=== PATIENT | male | born 1985 | race Caucasian/White ===

== ENCOUNTER 2019-02-24 01:53 | Observation (INO) ==
[2019-02-24] MEDS ORDERED: ONDANSETRON INJ 2 MG/ML 2 ML VIAL IV STA (02:21)
[2019-02-24] MEDS ORDERED: HYDROmorphone INJ 0.5 MG/0.5 ML SYR IV STA (02:21)
[2019-02-24 02:28] LABS: Basophils # (auto) 0.02 K/uL (0-0.2); Basophils % (auto) 0.1 %; Eosinophils # (auto) 0.11 K/uL (0-0.5); Eosinophils % (auto) 0.6 %; Hematocrit (blood only) 43.9 % (42-52); Hemoglobin 15.3 g/dL (14.0-18.0); Immature Granulocytes # (auto) 0.07 K/uL (0.00-0.02); Immature Granulocytes % (auto) 0.4 %; Lymphocytes # (auto) 1.31 K/uL (1.2-3.4); Lymphocytes % (auto) 6.9 %; Mean Corpuscular Hgb Conc 34.9 g/dL (32-36); Mean Corpuscular Volume 87.3 fL (80-100); Monocytes # (auto) 1.38 K/uL (0.11-0.59); Monocytes % (auto) 7.3 %; Neutrophils # (auto) 16.14 K/uL (1.4-6.5); Neutrophils % (auto) 84.7 %; Platelet Count 255 K/uL (130-400); RDW Coefficient of Variation 14.1 % (11.5-14.5); RDW Standard Deviation 44.9 fL (36.4-46.3); Red Blood Count 5.03 M/uL (4.7-6.1); White Blood Count 19.03 K/uL (4.8-10.8)
[2019-02-24] MEDS ORDERED: SODIUM CHLORIDE 0.9% 1000ML 1,000 ML IV SCH ×2 (02:30→04:00)
[2019-02-24 02:52] LABS: Albumin Level 4.1 gm/dl (3.4-5.0); BUN Creatinine Ratio 12.4 (10-20); Calcium 8.9 mg/dl (8.5-10.1); Creatinine Clr Calc Pharmacy 107.5 ml/min; Est GFR (African American) 94.4; Est GFR (Non-African American) 81.4; Potassium 3.6 mmol/L (3.5-5.1)
[2019-02-24 02:55] LABS: Albumin Globulin Ratio 1.2 (0.9-2); Bilirubin,Total 0.4 mg/dl (0.2-1); Globulin 3.5 gm/dl (2.5-4.0); Total Protein 7.6 gm/dl (6.4-8.2)
[2019-02-24] MEDS ORDERED: IOVERSOL 100ml IV PRN (03:16)
[2019-02-24] MEDS ORDERED: PIPERACILL/TAZOBAC CONSULT ACTIVE PRN (03:52)
[2019-02-24] MEDS ORDERED: PIPERACILLIN/TAZOBACTAM 4.5 GM/120 ML BAG IV ONE (03:52)
--- NOTE | 2019-02-24 04:21 | Surgery Consultation ---
Date of Consultation February 24, 2019 Assessment & Plan (1) Acute appendicitis: pt is a 34 year-old male who presents to Er with one day history lower abdominal pain, IMP: acute appendicitis, malrotation of bowel, Plan, I recommend to do laparoscopic appendectomy, possible open , D/W benefits, risks and alternatives of the surgery, the risks - infection, bleeding, abscess, injury bowel, pt understood, he agrees with the surgery, I answered all questions, History of Present Illness Attending Physician: pt is a 34 year-old male who presents to ER with one day history lower abdominal pain , with nausea, no vomiting, the pain is located at lower abdomen, pt denies fever, no diarrhea, pt had CT scan at ER dx acute appendicitis at RLQ, malrotation of bowel, WBC 19,000, otherwise pt is health. Allergies Allergy/AdvReac Type Severity Reaction Status Date / Time pollen extracts Allergy Intermediate ITCHY Verified 02/24/19 02:19 EYES, SNEEZING, CONGESTION Home Medications Home Medications Medication Instructions Recorded Confirmed Type cetirizine [Zyrtec] 10 mg PO DAILY 02/24/19 02/24/19 History dextroamphetamine-amphetamine 10 mg PO QAM 02/24/19 02/24/19 History [Adderall XR] levothyroxine 50 mcg PO DAILYBB 02/24/19 02/24/19 History sertraline [Zoloft] 200 mg PO DAILY 02/24/19 02/24/19 History Patient History Medical History No significant past medical history Social History Preferred Language: Vietnamese Feels Safe at Home: Yes Smoking Status: Never smoker Review of Systems Constitutional: as per Subjective / HPI Ear, Nose, Mouth, Throat: as per Subjective / HPI Respiratory: as per Subjective / HPI Cardiovascular: as per Subjective / HPI Gastrointestinal: as per Subjective / HPI Genitourinary (Male): as per Subjective / HPI Musculoskeletal: as per Subjective / HPI Neurologic: as per Subjective / HPI Psychiatric: as per Subjective / HPI hypothyroidism Hematologic / Lymphatic: as per Subjective / HPI Physical Exam Vital Signs (Past 24 Hours): Last Vital Signs Temp 36.4 C L 02/24/19 02:02 Pulse 76 02/24/19 03:00 Resp 19 02/24/19 03:00 BP 134/77 02/24/19 03:00 Pulse Ox 95 02/24/19 03:00 Constitutional: WD/WN, vitals as above well developed and well nourished Neck: trachea midline, no thyromegaly Respiratory: normal respiratory effort, lungs clear to auscultation normal respiratory effort Cardiovascular: RRR, no murmur, no edema Rate/Rhythm: regular rate and regular rhythm Heart Sounds: normal S1 and normal S2 Gastrointestinal (Abdomen): normal bowel sounds, soft, nontender, no hepatosplenomegaly Percussion/Palpation: + abdomen tender and abdomen soft tenderness at RLQ but near middle line, rebound pain +-, BS +, no distend Musculoskeletal: no cyanosis or clubbing, extremities motor strength 5/5 Neurologic: patellar DTR's 2+ bilat, sensation intact awake Psychiatric: Orientation: alert and oriented x 3 Results & Data Laboratory Results Abnormal lab results 02/24/19 02/24/19 Range/Units 02:15 02:15 WBC 19.03 H (4.8-10.8) K/uL Immature Gran # (Auto) 0.07 H (0.00-0.02) K/uL Neut # (Auto) 16.14 H (1.4-6.5) K/uL [place] # (Auto) 1.38 H (0.11-0.59) K/uL Chloride 109 H (98-107) mmol/L Glucose 146 H (70-99) mg/dl Diagnostic Findings CT scan- acute appendicitis, with malrotation
[2019-02-24 04:29] LABS: Appearance Urine Clear (Clear); Bilirubin Urine Negative (Negative); Blood Urine Negative (Negative); Color Urine Yellow; Glucose Urine UA Negative (Negative); Ketones Urine Negative (Negative); Leukocyte Esterase Urine Negative (Negative); Nitrite Urine Negative (Negative); Protein Urine Negative (Negative); Specific Gravity Urine > 1.045 (1.000-1.030); Urobilinogen Urine Negative (Negative)
--- NOTE | 2019-02-24 04:36 | History & Physical Bridge Note ---
Date of Service February 24, 2019 History & Physical Bridge Note I have examined the patient, reviewed the History & Physical and in the interval since the performance of the History & Physical I have noted the following changes of clinical significance: no changes noted
--- NOTE | 2019-02-24 04:39 | Anesthesiology Consultation ---
Date of Service February 24, 2019 Assessment & Plan Chart Review Chart Review: Acceptable Risk for Surgery and Patient NOT seen in Pre Admission Testing Consults Requested none ASA [id number] Proposed Anesthesia Anesthesia Type: General Risk / Benefits Reviewed With: PT / POA / Parent / Guardian, Accepts Plan and Informed Consent Obtained NPO Date Last Intake of Fluids: 02/23/19 Time Last Intake of Fluids: 19:00 Date Last Intake of Solids: 02/23/19 Time Last Intake of Solids: 18:00 History Height/Weight Height: 5 ft 11 in Weight: 101 kg Allergies Allergy/AdvReac Type Severity Reaction Status Date / Time pollen extracts Allergy Intermediate ITCHY Verified 02/24/19 02:19 EYES, SNEEZING, CONGESTION Medications Home Medications Medication Instructions Recorded Confirmed Last Taken cetirizine [Zyrtec] 10 mg PO DAILY 02/24/19 02/24/19 02/23/19 dextroamphetamine-amphetamine 10 mg PO QAM 02/24/19 02/24/19 02/23/19 [Adderall XR] levothyroxine 50 mcg PO DAILYBB 02/24/19 02/24/19 02/23/19 sertraline [Zoloft] 200 mg PO DAILY 02/24/19 02/24/19 02/23/19 Active Medications Generic Name Dose Route Start Last Admin Trade Name Freq PRN Reason Stop Dose Admin Ioversol 100 ml 02/24/19 03:16 02/24/19 03:17 Optiray 320 100ml IV 02/28/19 03:15 92 ml ONCE PRN Administration Interaction Checking Past Medical History Medical History Acute appendicitis ADHD Hypothyroidism No significant past medical history Obesity Past Anesthesia History No Hx of Anesthesia Complications and No Family Hx of Anesthesia Complications History of PONV No Motion Sickness Screening History of Motion Sickness: No Social History Smoking Status: Never smoker Hx Substance Use: No substance use type: amphetamines Exercise / Class Metabolic Activity II 4-5 Yardwork/Stairs/Walk up hill Physical Exam Vital Signs Last Vital Signs Temp 36.4 C L 02/24/19 02:02 Pulse 71 02/24/19 04:22 Resp 18 02/24/19 04:22 BP 123/61 02/24/19 04:22 Pulse Ox 97 02/24/19 04:22 Constitutional + obese ENMT Mouth: no dentition abnormality Thyromental Distance: > or= 3.5 Finger Breadths Mallampati Class: II Neck normal visual inspection, trachea midline and + facial hair; neck extension not limited Respiratory normal respiratory effort Auscultation: lungs clear to auscultation bilaterally Cardiovascular Rate/Rhythm: regular rate and regular rhythm Heart Sounds: no murmur Vessels: no carotid bruit Musculoskeletal Spine: normal cervical ROM Neurologic moves all extremities Motor/Sensory: no sensory deficit Psychiatric Orientation: alert and oriented x 3 Testing Laboratory Results 02/24/19 02:15 02/24/19 02:15 Urine Color Yellow 02/24/19 04:20 Urine Appearance Clear (Clear) 02/24/19 04:20 Urine pH 7.0 (4.5-7.5) 02/24/19 04:20 Ur Specific [place] > 1.045 (1.000-1.030) H 02/24/19 04:20 Urine Protein Negative (Negative) 02/24/19 04:20 Urine Glucose (UA) Negative (Negative) 02/24/19 04:20 Urine Ketones Negative (Negative) 02/24/19 04:20 Urine Nitrite Negative (Negative) 02/24/19 04:20 Ur Leukocyte Esterase Negative (Negative) 02/24/19 04:20
[2019-02-24] MEDS ORDERED: LIDOCAINE HCL 1% 20 ML VIAL ONE (04:50)
[2019-02-24] MEDS ORDERED: BACITRACIN OINT 15 GM TUBE ONE (04:50)
[2019-02-24] MEDS ORDERED: BUPIVACAINE 0.5 % 5 MG/1 ML MPF 30ML VIAL ONE (04:50)
[2019-02-24] MEDS ORDERED: NALOXONE HCL 0.4 MG/1 ML VIAL/CARP IV PRN ×2 (04:56→07:10)
[2019-02-24] MEDS ORDERED: ATROPINE SULFATE 0.1 MG/ML 10ML SYR IV PRN ×2 (04:56→07:09)
[2019-02-24] MEDS ORDERED: PROMETHAZINE HCL 12.5 MG in SODIUM CHLORIDE 0.9% 50 ML IV PRN ×2 (04:56→07:08)
[2019-02-24] MEDS ORDERED: FLUMAZENIL 0.1 MG/1 ML 10 ML VIAL IV PRN ×2 (04:56→07:10)
[2019-02-24] MEDS ORDERED: ONDANSETRON INJ 2 MG/ML 2 ML VIAL IV PRN ×3 (04:56→07:08)
[2019-02-24] MEDS ORDERED: LABETALOL HCL IV 5 MG/ML 20ML IV PRN ×2 (04:56→07:08)
[2019-02-24] MEDS ORDERED: HYDROmorphone INJ 1 MG/ML SYRINGE IV PRN ×2 (04:56→07:08)
[2019-02-24] MEDS ORDERED: ePHEDrine sulfate 50 MG/ML AMP IV PRN ×2 (04:56→07:08)
[2019-02-24] MEDS ORDERED: SUCCINYLCHOLINE 100MG/5ML SYR ONE (05:13)
[2019-02-24] MEDS ORDERED: PROPOFOL IV EMULSION 10 MG/ML 20 ML VIAL IV ONE (05:13)
[2019-02-24] MEDS ORDERED: fentaNYL citrate 100 MCG/2 ML VIAL ONE ×2 (05:13→05:14)
[2019-02-24] MEDS ORDERED: CISATRACURIUM BESYLATE IV SOLN 2 MG/ML 10 ML VIAL IV ONE (05:13)
[2019-02-24] MEDS ORDERED: MIDAZOLAM HCL 1 MG/ML 2ML VIAL ONE (05:15)
--- NOTE | 2019-02-24 05:30 | Emergency Department Note ---
Entered by Sundeep Mehta acting as a scribe for Leelee Aguilar MD History of Present Illness General Chief complaint: Abdominal Pain Stated complaint: SEVERE ABD PAIN Source: patient Limitations: no limitations History of Present Illness Provider complaint: ABD Pain Onset (ago): hour(s) Location: abdomen Pain Consistency: + other (gradually worsening) Maximum Pain Intensity: 7 Exacerbated By: + other (palpation, deep breathing, sneezing, movement) Associated symptoms: no fever/chills Treatments prior to arrival: none The patient is a 34 year old male who presents to the Emergency Room with complaints of gradually worsening abdominal pain that began this evening. The patient states that he felt well throughout the day today, and then began to notice abdominal pain this afternoon. He notes that the pain has progressively worsened. The pain is worsened with palpation, sneezing, and general movement. He denies any fever. The patient has no history of abdominal surgeries. Home Medications Home Medications Medication Instructions Recorded Confirmed Type cetirizine [Zyrtec] 10 mg PO DAILY 02/24/19 02/24/19 History dextroamphetamine-amphetamine 10 mg PO QAM 02/24/19 02/24/19 History [Adderall XR] levothyroxine 50 mcg PO DAILYBB 02/24/19 02/24/19 History sertraline [Zoloft] 200 mg PO DAILY 02/24/19 02/24/19 History Allergies Allergy/AdvReac Type Severity Reaction Status Date / Time pollen extracts Allergy Intermediate ITCHY Verified 02/24/19 02:19 EYES, SNEEZING, CONGESTION Past Med/Surg History Medical History Acute appendicitis (Acute) ADHD Hypothyroidism No significant past medical history Obesity Social History Preferred Language: Kyrgyz Feels Safe at Home: Yes Smoking Status: Never smoker Hx Substance Use: No Review of Systems See HPI for pertinent positives & negatives. and A total of 10 systems reviewed and were otherwise negative Physical Exam Vital Signs Vital Signs - 24 hr 02/24/19 02:02 02/24/19 02:53 02/24/19 03:00 Temperature 36.4 C L Temperature Source Oral Sepsis Recent Fever Within 48 Hours No Sepsis Action Taken by Nursing No Action Required Pulse Rate 85 Pulse Rate [Apical] 76 Pulse Rhythm [Apical] Regular Pulse Strength [Apical] Normal Respiratory Rate 18 19 Respiratory Effort / Characteristics Non-Labored Spontaneous Non-Labored Spontaneous Respiratory Depth Normal Normal Respiratory Pattern Regular Blood Pressure 124/81 Blood Pressure [Right Arm] 134/77 Blood Pressure Mean 95 Blood Pressure Mean [Right Arm] 96 Blood Pressure Position Sitting Blood Pressure Position [Right Arm] Lying Pulse Oximetry 96 94 95 Oxygen Delivery Method Room Air Room Air Room Air 02/24/19 04:22 02/24/19 05:09 Temperature Temperature Source Sepsis Recent Fever Within 48 Hours Sepsis Action Taken by Nursing Pulse Rate 78 Pulse Rate [Apical] 71 Pulse Rhythm [Apical] Regular Pulse Strength [Apical] Normal Respiratory Rate 18 18 Respiratory Effort / Characteristics Non-Labored Spontaneous Respiratory Depth Normal Respiratory Pattern Regular Blood Pressure 123/61 Blood Pressure [Right Arm] 123/61 Blood Pressure Mean Blood Pressure Mean [Right Arm] 81 Blood Pressure Position Blood Pressure Position [Right Arm] Lying Pulse Oximetry 97 97 Oxygen Delivery Method Room Air Room Air Vital signs reviewed. General: Well-appearing young male, in no significant distress. HEENT: No scleral icterus, PERRLA, neck supple. Atraumatic. Cardiovascular: Regular rate and rhythm, no extra sounds. Pulmonary: Clear to auscultation bilaterally, normal work of breathing. Abdomen: Soft, with tenderness across the lower abdomen, positive rebound, positive guarding, nondistended, positive bowel sounds. Musculoskeletal: Atraumatic, no peripheral edema. Neurologic: Patient awake alert and oriented x 3, full strength in all 4 extremities. Cranial nerves 2 through 12 grossly intact. Skin: Warm, dry, no rash Course 0221: The patient was evaluated in room A2, and a complete history and physical examination were performed. 0345: I discussed the case with the [facility] Radiologist who read the CT. The radiologist will now call acute appendicitis on the imaging. 0353: I reviewed the patient's case with Dr. Cruz - General Surgery. He will evaluate the patient for surgical intervention. 0403: Dr. Cruz will take the patient to the OR. Administered Medications Ioversol (Optiray 320 100ml) 100 ml IV ONCE PRN PRN Reason: Interaction Checking Stop: 02/28/19 03:15 Last Admin: 02/24/19 03:17 Dose: 92 ml Documented by: [id number] Discontinued Medications Hydromorphone HCl (Dilaudid) 0.5 mg IV NOW STA Stop: 02/24/19 02:22 Last Admin: 02/24/19 02:26 Dose: 0.5 mg Documented by: [id number] Sodium Chloride (Nss 1000ml) 1,000 mls @ 999 mls/hr IV .Q1H1M DADA Stop: 02/24/19 03:30 Last Infusion: 02/24/19 03:28 Dose: 0 mls/hr Documented by: [id number] Admin: 02/24/19 02:26 Dose: 999 mls/hr Documented by: [id number] Piperacillin Sod/Tazobactam Sod (Zosyn) 4.5 gm in 120 mls @ 240 mls/hr IV NOW ONE Stop: 02/24/19 04:21 Last Infusion: 02/24/19 04:39 Dose: 0 mls/hr Documented by: [id number] Admin: 02/24/19 04:15 Dose: 240 mls/hr Documented by: [id number] Ondansetron HCl (Zofran) 4 mg IV NOW STA Stop: 02/24/19 02:22 Last Admin: 02/24/19 02:26 Dose: 4 mg Documented by: [id number] Medical Decision Making Differential Diagnosis Differential diagnosis: Etiologies such as biliary colic, cholecystitis, hepatitis, pancreatitis, card iac disease, pancreatitis, gastritis, peptic ulcer disease, appendicitis, cystitis, diverticulitis, mesenteric ischemia, inflammatory bowel disease, ileus, bowel obstruction, testicular torsion, aortic pathology, shingles, as well as others were considered. Medical Records Attestation: I reviewed the patient's medical records. Home Medications Current Medication List: was personally reviewed by me Laboratory Data Attestation: I reviewed the patient's lab results. Result diagrams: 02/24/19 02:15 02/24/19 02:15 Lab Results 02/24/19 02/24/19 02/24/19 Range/Units 02:15 02:15 04:20 WBC 19.03 H (4.8-10.8) K/uL RBC 5.03 (4.7-6.1) M/uL Hgb 15.3 (14.0-18.0) g/dL Hct 43.9 (42-52) % MCV 87.3 (80-100) fL MCH 30.4 (25-34) pg MCHC 34.9 (32-36) g/dL RDW Std Deviation 44.9 (36.4-46.3) fL RDW Coeff of [place]cos 14.1 (11.5-14.5) % Plt Count 255 (130-400) K/uL MPV 10.0 (7.4-10.4) fL Immature Gran % (Auto) 0.4 % Neut % (Auto) 84.7 % Lymph % (Auto) 6.9 % [place] % (Auto) 7.3 % Eos % (Auto) 0.6 % Baso % (Auto) 0.1 % Immature Gran # (Auto) 0.07 H (0.00-0.02) K/uL Neut # (Auto) 16.14 H (1.4-6.5) K/uL Lymph # (Auto) 1.31 (1.2-3.4) K/uL [place] # (Auto) 1.38 H (0.11-0.59) K/uL Eos # (Auto) 0.11 (0-0.5) K/uL Baso # (Auto) 0.02 (0-0.2) K/uL Sodium 138 (136-145) mmol/L Potassium 3.6 (3.5-5.1) mmol/L Chloride 109 H (98-107) mmol/L Carbon Dioxide 21 (21-32) mmol/L Anion Gap 8.0 (3-11) BUN 14 (7-18) mg/dl Creatinine 1.15 (0.6-1.4) mg/dl Est Cr Clr Drug Dosing 107.5 ml/min Est GFR ( Amer) 94.4 Est GFR (Non-Af Amer) 81.4 BUN/Creatinine Ratio 12.4 (10-20) Glucose 146 H (70-99) mg/dl Calcium 8.9 (8.5-10.1) mg/dl Total Bilirubin 0.4 (0.2-1) mg/dl AST 15 (15-37) U/L ALT 37 (12-78) U/L Alkaline Phosphatase 93 (45-117) U/L Total Protein 7.6 (6.4-8.2) gm/dl Albumin 4.1 (3.4-5.0) gm/dl Globulin 3.5 (2.5-4.0) gm/dl Albumin/Globulin Ratio 1.2 (0.9-2) Lipase 96 (73-393) U/L Urine Color Urine Appearance (Clear) Urine pH (4.5-7.5) Ur Specific [place] (1.000-1.030) Urine Protein (Negative) POC Urine Protein Negative (Negative) Urine Glucose (UA) (Negative) POC Ur Glucose (UA) Normal (Normal) Urine Ketones (Negative) POC Urine Ketones Negative (Negative) Urine Blood (Negative) POC Urine Blood Negative (Negative) Urine Nitrite (Negative) POC Urine Nitrite Negative (Negative) Urine Bilirubin (Negative) POC Urine Bilirubin Negative (Negative) Urine Urobilinogen (Negative) POC Urine Urobilinogen Normal (Normal) Ur Leukocyte Esterase (Negative) POC U Leukocyte Esteras Negative (Negative) 02/24/19 Range/Units 04:20 WBC (4.8-10.8) K/uL RBC (4.7-6.1) M/uL Hgb (14.0-18.0) g/dL Hct (42-52) % MCV (80-100) fL MCH (25-34) pg MCHC (32-36) g/dL RDW Std Deviation (36.4-46.3) fL RDW Coeff of Marcos (11.5-14.5) % Plt Count (130-400) K/uL MPV (7.4-10.4) fL Immature Gran % (Auto) % Neut % (Auto) % Lymph % (Auto) % [place] % (Auto) % Eos % (Auto) % Baso % (Auto) % Immature Gran # (Auto) (0.00-0.02) K/uL Neut # (Auto) (1.4-6.5) K/uL Lymph # (Auto) (1.2-3.4) K/uL [place] # (Auto) (0.11-0.59) K/uL Eos # (Auto) (0-0.5) K/uL Baso # (Auto) (0-0.2) K/uL Sodium (136-145) mmol/L Potassium (3.5-5.1) mmol/L Chloride (98-107) mmol/L Carbon Dioxide (21-32) mmol/L Anion Gap (3-11) BUN (7-18) mg/dl Creatinine (0.6-1.4) mg/dl Est Cr Clr Drug Dosing ml/min Est GFR ( Amer) Est GFR (Non-Af Amer) BUN/Creatinine Ratio (10-20) Glucose (70-99) mg/dl Calcium (8.5-10.1) mg/dl Total Bilirubin (0.2-1) mg/dl AST (15-37) U/L ALT (12-78) U/L Alkaline Phosphatase (45-117) U/L Total Protein (6.4-8.2) gm/dl Albumin (3.4-5.0) gm/dl Globulin (2.5-4.0) gm/dl Albumin/Globulin Ratio (0.9-2) Lipase (73-393) U/L Urine Color Yellow Urine Appearance Clear (Clear) Urine pH 7.0 (4.5-7.5) Ur Specific [place] > 1.045 H (1.000-1.030) Urine Protein Negative (Negative) POC Urine Protein (Negative) Urine Glucose (UA) Negative (Negative) POC Ur Glucose (UA) (Normal) Urine Ketones Negative (Negative) POC Urine Ketones (Negative) Urine Blood Negative (Negative) POC Urine Blood (Negative) Urine Nitrite Negative (Negative) POC Urine Nitrite (Negative) Urine Bilirubin Negative (Negative) POC Urine Bilirubin (Negative) Urine Urobilinogen Negative (Negative) POC Urine Urobilinogen (Normal) Ur Leukocyte Esterase Negative (Negative) POC U Leukocyte Esteras (Negative) Imaging Data Attestation: I personally reviewed and interpreted this imaging study as follows: Radiologist's Impression: CT ABDOMEN AND PELVIS WITH CONTRAST: Mild dependent atelecdtasis bilaterally. Small spenule. Borderline size of the spleen. No hydronephrosis or obstructing stone. Appendix is not definitely visualized, but no CT evidence of acute appendicitis. Noted in the left abdomen and small bowel loops predominantly in the right abdomen, suggesting malrotation of bowel. Fluid and gas within small bowel loops are nonspecific but may represent enteri tis or ileus in the appropriate clinical setting. Elevation of the right hemidiaphragm. Small fat-containing umbilical hernia. Mild prominence of the bladder wall is nonspecific. Please correlate with urinalysis if concerned for cystitis. Radiologist; Starla Wilson M.D. ADDENDUM - Added by Starla Wilson M.D. on 02/24/2019 3:48 AM (-07:00) CORRECTION: COLON noted in the left abdomen and small bowel loops predominantly in the right abdomen, suggesting malrotation of the bowel. The appendix actually IS identified in the right lower quadrant measuring approximately 1.5 cm in diameter with mild fat stranding/trace fluid. Findings are compatible with ACUTE APPENDICITIS. No fluid collection or free air. Blood Pressure Blood Pressure Findings: Normal blood pressure Impression & Plan Acute appendicitis Discharge Plan Visit Data Chief Complaint: Abdominal Pain Stated Complaint: SEVERE ABD PAIN ED Provider: Leelee Aguilar Discharge Problem: Acute appendicitis Patient Disposition: Being Evaluated by Surgeon Discharge Instructions Interventions: ED Discharge Assessment Last Done: 02/24/19 05:09 Forms Stand Alone Forms: Call Back Authorization, [facility] Prescriptions Prescriptions: No Action cetirizine [Zyrtec] 10 mg Tablet 10 mg PO DAILY RF: 0 sertraline [Zoloft] 100 mg Tablet 200 mg PO DAILY RF: 0 levothyroxine 50 mcg Tablet 50 mcg PO DAILYBB RF: 0 dextroamphetamine-amphetamine [Adderall XR] 10 mg Capsule,Extended Release 24hr 10 mg PO QAM RF: 0 Referrals Referrals: Addy Godoy MD [Primary Care Provider] - Discharge Problem: Acute appendicitis Qualifiers: Acute appendicitis type: unspecified acute appendicitis type Qualified Code(s): K35.80 - Unspecified acute appendicitis The scribe's documentation has been prepared under my direction and personally reviewed by me in its entirety. I confirm that the note above accurately reflects all work, treatment, procedures, and medical decision making performed by me.
[2019-02-24] MEDS ORDERED: DEXAMETHASONE SOD INJ 4 MG/ML VIAL ONE (05:53)
[2019-02-24] MEDS ORDERED: ONDANSETRON INJ 2 MG/ML 2 ML VIAL ONE (05:54)
[2019-02-24] MEDS ORDERED: cefOXitin 2,000 MG in DEXTROSE 5% 50 ML IV STA (05:58)
[2019-02-24] MEDS ORDERED: GLYCOPYRROLATE 0.2 MG/ML VIAL ONE (06:07)
[2019-02-24] MEDS ORDERED: NEOSTIGMINE METHYLSULFATE 5 MG/5 ML SYR ONE (06:07)
--- NOTE | 2019-02-24 06:17 | Post Operative Brief Note ---
Immediate Post Op Note v1 Date of Surgery February 24, 2019 Pre & Post Diagnosis Operation Date: 02/24/19 05:30 Pre-Op Diagnosis: Acute appendicitis Post-Op Diagnosis: Acute appendicitis Procedure Operation Date: 02/24/19 05:30 Actual Procedures p Laparoscopic Appendectomy - Ottoniel Cruz MD Surgeon Ottoniel Cruz MD Regional Program Manager [employer] Estimated Blood Loss 5 Findings Consistent with Post-Op Diagnosis Fluids 1200ML Specimens APPENDIX Drains Thomas Catheter Anesthesia Type General Complications none Disposition Accompanied Patient To Recovery: Yes Disposition: Recovery Room Overlapping Procedure I was immediately available: during the entire case.
[2019-02-24] MEDS ORDERED: OXYCODONE/ACETAMINOPHEN 5mg/325mg TAB PO PRN (06:31)
[2019-02-24] MEDS ORDERED: HYDROmorphone INJ 0.5 MG/0.5 ML SYR IV PRN (06:32)
--- NOTE | 2019-02-24 06:49 | Anesthesiology Progress Note ---
Date of Service February 24, 2019 Anesthesia Post Procedure Vital Signs Vital Signs: Temp Pulse Pulse Resp BP BP Pulse Ox 02/24/19 06:47 80 19 135/79 94 02/24/19 06:42 82 21 132/77 97 02/24/19 06:37 86 20 110/66 99 02/24/19 06:32 36.5 C 71 20 122/63 97 02/24/19 05:09 78 18 123/61 97 02/24/19 04:22 71 18 123/61 97 02/24/19 03:00 76 19 134/77 95 02/24/19 02:53 94 02/24/19 02:02 36.4 C L 85 18 124/81 96 Pain Intensity Abdomen: Pain Intensity: 8 Notes Mental Status: alert / awake / arousable Patient Amnestic to Procedure: Yes Nausea / Vomiting: adequately controlled Pain: adequately controlled Airway Patency, RR, SpO2: stable & adequate BP & HR: stable & adequate Hydration State: stable & adequate Anesthetic Complications: no major complications apparent
--- NOTE | 2019-02-24 07:13 | CT Scan Report ---
ABDOMEN AND PELVIS CT WITH IV CONTRAST CT DOSE: 769.37 mGy.cm HISTORY: Acute right lower quadrant abdominal pain and tenderness lower abd pain, tender TECHNIQUE: Multiaxial CT images of the abdomen and pelvis were performed following the use of intrave nous contrast. A dose lowering technique was utilized adhering to the principles of ALARA. COMPARISON STUDY: MRI lumbar spine 03/04/2016 FINDINGS: There is mild dependent subsegmental bibasilar atelectasis. No pneumatosis or pneumoperiton eum. The imaged inferior cardiac chambers are unremarkable. Gallbladder is mildly contracted. The liver, spleen, pancreas and adrenal glands are unremarkable. Ao rta and IVC are within normal limits. There is no adenopathy. 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 No small bowel obstruction. Trace free pelvic fluid about the dependent pelvis. Mild c olonic diverticulosis without acute diverticulitis. Cecum is noted within the central lower pelvis. T here is moderate right-sided cecal wall thickening. The appendix is dilated and fluid-filled with muc osal hyperemia measuring up to 1.4 cm transversely. Trace periappendiceal fluid with mild adjacent in flammatory stranding. No evidence of perforation or drainable fluid collection. Prominent lymph nodes about the central lower mesentery measuring up to 9 mm are likely reactive. Small fat filled periumb ilical hernia, diastases 1.7 cm. Bones appear to be intact. Multilevel facet arthrosis. IMPRESSION: 1. Findings compatible with acute uncomplicated appendicitis. No evidence of perforation or drainable fluid collection. 2. Moderate wall thickening of the cecum is likely reactive secondary to the aforementioned acute manjinder endicitis. 3. Congenital malrotation of the small bowel. No bowel obstruction. 4. Mild colonic diverticulosis without acute diverticulitis. Electronically signed by: Adalid Barlow M.D. 02/24/2019 7:12 AM
[2019-02-24] MEDS ORDERED: LEVOTHYROXINE SODIUM 50 MCG TABLET PO SCH (07:22)
--- NOTE | 2019-02-24 07:22 | Operative Report ---
DATE OF OPERATION: 02/24/2019 PREOPERATIVE DIAGNOSIS: Acute appendicitis. POSTOPERATIVE DIAGNOSIS: Acute appendicitis. PROCEDURE: Laparoscopic appendectomy. SURGEON: Ottoniel Cruz MD ANESTHESIA: General. ESTIMATED BLOOD LOSS: About 5 mL. FINDINGS: Acute appendicitis. COMPLICATIONS: None. INDICATIONS FOR THE PROCEDURE: This is a 34-year-old gentleman who presented to ED with 1 day history of abdominal pain. The patient had a CT scan diagnosis of acute appendicitis. I recommended to do a laparoscopic appendectomy, possible open. I did talk to the patient about the benefit, risk, alternate procedure. I indicated the risks may include but not limited such as bleeding, infection, abscess, injury to the bowel. The patient understands. He signed informed consent and I answered all questions. DETAILS OF PROCEDURE: We brought the patient to the OR, put the patient in the supine position. The patient received SCD on bilateral legs to prevent DVT. Also, the patient received 2 grams cefoxitin IV for prophylactic antibiotic. The patient received general anesthesia without difficulty. The patient received Thomas catheter insertion. The abdomen was prepped and draped in routine sterile fashion. After timeout, we injected the local anesthesia by using 1% lidocaine mixed with 0.5% Marcaine just above umbilicus. Then, I made a small incision just above umbilicus, opened fascia and opened peritoneum under direct vision, put a Kevin trocar in, connected to CO2 to create pneumoperitoneum. Flow rate at 6-liter per minute. Pressure not more than 14 mmHg. 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 The appendix shows significant inflammation, a large confirmed diagnosis of acute appendicitis. Then, we put another two 5 mm trocar on the left lower quadrant area. Once all trocars in, I used a Harmonic to take down the appendiceal, rechecked, no active bleeding. Then, I used a 45 mm Endo-CHELSY staple, transection on the base of the appendix, rechecked at the staple line intact, no leak, no active bleeding. Then, we removed the appendix through the catcher bag. Then, we reinserted Kevin trocar in, connected to CO2 to create pneumoperitoneum again though around the abdomen. The staple line intact, no leak, no active bleeding, no free fluid in the abdomen. Then, we removed all trocar under direct vision. No active bleeding from the trocar site. Pneumoperitoneum was released. I then closed the umbilical incision, fascial layer by using #1 Vicryl [id number] x2, closed subcutaneous layer by using 2-0 Vicryl interruptedly, closed skin by using 4-0 Vicryl continuous running, closed another two 5 mm trocar site skin only by using 4-0 Vicryl. Then we put the dressing on. The patient tolerated the procedure well. All the instrument, needle and sponge count were correct x2 at the end of case. The patient transferred to recovery room in stable condition. After the procedure, I did talk to the patient and family member about OR finding and procedure we did, she understands. Also, I gave them the postop care instructions. I attest to the content of the Intraoperative Record and any orders documented therein. Any exception s are noted below.
[2019-02-24] MEDS ORDERED: LACTATED RINGER'S 1,000 ML IV SCH (07:30)
[2019-02-24] MEDS ORDERED: AMPHETAMINE ASP/SULF/DEXTRAMPH 10 MG TAB PO SCH (09:00)
[2019-02-24] MEDS ORDERED: SERTRALINE HCL 100 MG TABLET PO SCH (09:00)
[2019-02-24] MEDS ORDERED: CETIRIZINE HCL 10 MG TABLET PO SCH (09:00)
[2019-02-24 13:10] LABS: Basophils # (auto) 0.01 K/uL (0-0.2); Basophils % (auto) 0.1 %; Hematocrit (blood only) 41.4 % (42-52); Immature Granulocytes # (auto) 0.05 K/uL (0.00-0.02); Immature Granulocytes % (auto) 0.4 %; Lymphocytes # (auto) 0.78 K/uL (1.2-3.4); Lymphocytes % (auto) 6.3 %; Mean Corpuscular Hgb Conc 33.8 g/dL (32-36); Mean Corpuscular Volume 87.9 fL (80-100); Mean Platelet Volume 9.9 fL (7.4-10.4); Monocytes # (auto) 0.27 K/uL (0.11-0.59); Monocytes % (auto) 2.2 %; Neutrophils # (auto) 11.32 K/uL (1.4-6.5); Platelet Count 227 K/uL (130-400); RDW Coefficient of Variation 14.3 % (11.5-14.5); Red Blood Count 4.71 M/uL (4.7-6.1); White Blood Count 12.43 K/uL (4.8-10.8)
[2019-02-24] MEDS ORDERED: IBUPROFEN 600 MG TAB PO PRN (13:53)
[2019-02-24] MEDS ORDERED: ACETAMINOPHEN 325 MG TAB PO PRN (13:53)
--- NOTE | 2019-02-24 13:57 | Surgery Progress Note ---
Date of Service February 24, 2019 Assessment & Plan (1) Acute appendicitis: POD # 0 s/p lap appy -afebrile, vitals stable - leukocytosis improved to 12K - abdominal pain minimal at incision sites - no n/v, shyanne reg diet Plan: Discharge home today discharge instructions reviewed follow-up surgical office in 1-2 weeks Rx for Percocet, advised extra strength Tylenol and Ibuprofen for mild pain Subjective sleeping when entering room pain minimal, did not like Percocet. Does not believe his pain is that severe to warrant percocet. Made him feel hot. No n/v tolerated regular diet ready to go home Physical Exam Vital Signs (Past 24 Hours): Last Vital Signs Temp 36.8 C 02/24/19 10:23 Pulse 76 02/24/19 10:23 Resp 16 02/24/19 10:23 BP 116/72 02/24/19 10:23 Pulse Ox 95 02/24/19 10:23 Constitutional: WD/WN, vitals as above no acute distress and not ill appearing Respiratory: normal respiratory effort; no respiratory distress Gastrointestinal (Abdomen): Inspection/Auscultation: abdomen normal to inspection; abdomen not distended Percussion/Palpation: + abdomen tender (at incision sites, appropriate post op) and abdomen soft; no guarding and abdomen not rigid Skin: no rashes, warm and dry + incision (clean/dry/intact dressings with mild spotting) Psychiatric: A+Ox3, euthymic affect Results & Data Laboratory Results 02/24/19 02/24/19 02/24/19 Range/Units 13:00 04:20 04:20 WBC 12.43 H (4.8-10.8) K/uL RBC 4.71 (4.7-6.1) M/uL Hgb 14.0 (14.0-18.0) g/dL Hct 41.4 L (42-52) % MCV 87.9 (80-100) fL MCH 29.7 (25-34) pg MCHC 33.8 (32-36) g/dL RDW Std Deviation 46.0 (36.4-46.3) fL RDW Coeff of Marcos 14.3 (11.5-14.5) % Plt Count 227 (130-400) K/uL MPV 9.9 (7.4-10.4) fL Immature Gran % (Auto) 0.4 % Neut % (Auto) 91.0 % Lymph % (Auto) 6.3 % [place] % (Auto) 2.2 % Eos % (Auto) 0.0 % Baso % (Auto) 0.1 % Immature Gran # (Auto) 0.05 H (0.00-0.02) K/uL Neut # (Auto) 11.32 H (1.4-6.5) K/uL Lymph # (Auto) 0.78 L (1.2-3.4) K/uL Fergus # (Auto) 0.27 (0.11-0.59) K/uL Eos # (Auto) 0.00 (0-0.5) K/uL Baso # (Auto) 0.01 (0-0.2) K/uL Sodium (136-145) mmol/L Potassium (3.5-5.1) mmol/L Chloride (98-107) mmol/L Carbon Dioxide (21-32) mmol/L Anion Gap (3-11) BUN (7-18) mg/dl Creatinine (0.6-1.4) mg/dl Est Cr Clr Drug Dosing ml/min Est GFR ( Amer) Est GFR (Non-Af Amer) BUN/Creatinine Ratio (10-20) Glucose (70-99) mg/dl Calcium (8.5-10.1) mg/dl Total Bilirubin (0.2-1) mg/dl AST (15-37) U/L ALT (12-78) U/L Alkaline Phosphatase (45-117) U/L Total Protein (6.4-8.2) gm/dl Albumin (3.4-5.0) gm/dl Globulin (2.5-4.0) gm/dl Albumin/Globulin Ratio (0.9-2) Lipase (73-393) U/L Urine Color Yellow Urine Appearance Clear (Clear) Urine pH 7.0 (4.5-7.5) POC Urine pH Not Reportable Ur Specific [place] > 1.045 H (1.000-1.030) Urine Protein Negative (Negative) POC Urine Protein Negative (Negative) Urine Glucose (UA) Negative (Negative) POC Ur Glucose (UA) Normal (Normal) Urine Ketones Negative (Negative) POC Urine Ketones Negative (Negative) Urine Blood Negative (Negative) POC Urine Blood Negative (Negative) Urine Nitrite Negative (Negative) POC Urine Nitrite Negative (Negative) Urine Bilirubin Negative (Negative) POC Urine Bilirubin Negative (Negative) Urine Urobilinogen Negative (Negative) POC Urine Urobilinogen Normal (Normal) Ur Leukocyte Esterase Negative (Negative) POC U Leukocyte Esteras Negative (Negative) 02/24/19 02/24/19 Range/Units 02:15 02:15 WBC 19.03 H (4.8-10.8) K/uL RBC 5.03 (4.7-6.1) M/uL Hgb 15.3 (14.0-18.0) g/dL Hct 43.9 (42-52) % MCV 87.3 (80-100) fL MCH 30.4 (25-34) pg MCHC 34.9 (32-36) g/dL RDW Std Deviation 44.9 (36.4-46.3) fL RDW Coeff of Marcos 14.1 (11.5-14.5) % Plt Count 255 (130-400) K/uL MPV 10.0 (7.4-10.4) fL Immature Gran % (Auto) 0.4 % Neut % (Auto) 84.7 % Lymph % (Auto) 6.9 % [place] % (Auto) 7.3 % Eos % (Auto) 0.6 % Baso % (Auto) 0.1 % Immature Gran # (Auto) 0.07 H (0.00-0.02) K/uL Neut # (Auto) 16.14 H (1.4-6.5) K/uL Lymph # (Auto) 1.31 (1.2-3.4) K/uL [place] # (Auto) 1.38 H (0.11-0.59) K/uL Eos # (Auto) 0.11 (0-0.5) K/uL Baso # (Auto) 0.02 (0-0.2) K/uL Sodium 138 (136-145) mmol/L Potassium 3.6 (3.5-5.1) mmol/L Chloride 109 H (98-107) mmol/L Carbon Dioxide 21 (21-32) mmol/L Anion Gap 8.0 (3-11) BUN 14 (7-18) mg/dl Creatinine 1.15 (0.6-1.4) mg/dl Est Cr Clr Drug Dosing 107.5 ml/min Est GFR ( Amer) 94.4 Est GFR (Non-Af Amer) 81.4 BUN/Creatinine Ratio 12.4 (10-20) Glucose 146 H (70-99) mg/dl Calcium 8.9 (8.5-10.1) mg/dl Total Bilirubin 0.4 (0.2-1) mg/dl AST 15 (15-37) U/L ALT 37 (12-78) U/L Alkaline Phosphatase 93 (45-117) U/L Total Protein 7.6 (6.4-8.2) gm/dl Albumin 4.1 (3.4-5.0) gm/dl Globulin 3.5 (2.5-4.0) gm/dl Albumin/Globulin Ratio 1.2 (0.9-2) Lipase 96 (73-393) U/L Urine Color Urine Appearance (Clear) Urine pH (4.5-7.5) POC Urine pH Ur Specific [place] (1.000-1.030) Urine Protein (Negative) POC Urine Protein (Negative) Urine Glucose (UA) (Negative) POC Ur Glucose (UA) (Normal) Urine Ketones (Negative) POC Urine Ketones (Negative) Urine Blood (Negative) POC Urine Blood (Negative) Urine Nitrite (Negative) POC Urine Nitrite (Negative) Urine Bilirubin (Negative) POC Urine Bilirubin (Negative) Urine Urobilinogen (Negative) POC Urine Urobilinogen (Normal) Ur Leukocyte Esterase (Negative) POC U Leukocyte Esteras (Negative) (1) Acute appendicitis Acute appendicitis type: unspecified acute appendicitis type Qualified Code(s): K35.80 - Unspecified acute appendicitis
--- NOTE | 2019-02-27 07:24 | Discharge Summary ---
Date of Service February 27, 2019 Admission HPI Per Admitting Provider pt is a 34 year-old male who presents to ER with one day history lower abdominal pain , with nausea, no vomiting, the pain is located at lower abdomen, pt denies fever, no diarrhea, pt had CT scan at ER dx acute appendicitis at RLQ, malrotation of bowel, WBC 19,000, otherwise pt is health. Principal Diagnosis Acute appendicitis Discharge Exam Constitutional WD/WN, vitals as above no acute distress and not ill appearing Respiratory normal respiratory effort; no respiratory distress Gastrointestinal (Abdomen) Inspection/Auscultation: abdomen normal to inspection; abdomen not distended Percussion/Palpation: + abdomen tender (at incision sites, appropriate post op) and abdomen soft; no guarding and abdomen not rigid Skin no rashes, warm and dry + incision (clean/dry/intact dressings with mild spotting) Psychiatric A+Ox3, euthymic affect Discharge Data Allergies Allergy/AdvReac Type Severity Reaction Status Date / Time pollen extracts Allergy Intermediate ITCHY Verified 02/24/19 02:19 EYES, SNEEZING, CONGESTION Consultations 02/24/19 04:07 ED Decision to Admit Stat Procedures Performed Operation Date: 02/24/19 05:30 Actual Procedures p Laparoscopic Appendectomy - Ottoniel Cruz MD Ordered Studies 02/24/19 02:21 CT abd pelvis IV con only Urgent Hospital Course (1) Acute appendicitis: Patient was taken to operating room for laparoscopic appendectomy possible open by Dr. Cruz. Patient found to have severe acute appendicitis but no perforation. Patient tolerated procedure well and was transferred to recovery room and then to medical/surgical floor for post operative care. He was started on IV fluids, PO Percocet with breakthrough Dilaudid prn pain, IV Zofran prn nausea, Clear liquid diet, SCDs for DVT prophylaxis, incentive spirometry and activity as tolerated. Patient evaluated on POD # 0 about 8 hours post op. Vitals stable, afebrile, abdominal pain controlled, preop pain resolved, no n/v. Has not had breakfast yet. Diet was advanced as tolerated for lunch. Advised to ambulate in hallway. Repeat CBC scheduled at 1300. Patient was re-evaluated in the afternoon. Pain controlled, did not like Percocet so ordered Tylenol and Ibuprofen prn pain, tolerated regular diet. WBC improved to 12K. Patient was discharged home on POD # 0 in stable condition. Total Time Total Time Spent Total Time Spent (In Minutes): 30 Total Time Includes: Examination of the Patient, Discharge Planning and Medication Reconciliation
--- OUTSIDE RECORDS SUMMARY | 2019-03-03 09:54 | External Medical Summary | Continuity of Care Document ---
:1985 Author Name Yash Mixon Address Unavailable Unavailable , Care Team Providers Name Role Phone Esdras ROSENBERG M.D., P. Unavailable [email or web address] [email or web address], [email or web address] Unavailable Unavailable Assessments Assessed Problems:Lumbar radiculopathy Problems Lumbar radiculopathy (724.4) (M54.16) Allergies and Adverse Reactions Allergy history not documented Medications Medications not documented Procedures Procedures not documented Immunizations Immunizations not documented Plan of Treatment Planned Observations Planned Goals not documented Results No Known Results Results not documented Encounters Appointment; Rosette Dewitt III, M.D. 01-Apr-2016 16:00 Encounter Diagnosis: Problem not documented
== END 2019-02-24 15:41 | disposition home or self-care (01) ==
LOC: ED 01:53 → 3W 01:53 → ED 05:09